=== PATIENT | female | born 1990 | race Caucasian/White ===

== ENCOUNTER 2017-04-12 20:48 | Outpatient (CLI) | payer OTHER ==
[~2017-04-12] VITALS: Ht 165.1 cm; Wt 120.3 kg
[~2017-04-12 20:48] MED LIST: FERR240T9 PO; NITR-58 PO; PREN1TAB79 PO
--- NOTE | 2017-04-12 21:23 | PN ---
Triage Information Date/Time Reason for visit: dysuria Weeks of Gestation 26 weeks /Para Diabetes: none Hypertention: none Objective Heart Rate: 140's Heart Rate Comments Appropriate for GA Contractions: None Disposition: Assessment/Plan Urinalysis D/C home after results are available. WILLY MARTINEZ MD Apr 12, 2017 21:23
[2017-04-12 21:54] VITALS: BP 108/63; PULSE 83; RESP 18
[2017-04-12 23:25] LABS: ADD UMIC YES; UR ASCORBIC ACID 20 mg/dL (NEGATIVE); UR BACTERIA FEW /HPF (NONE SEEN); UR BILIRUBIN (Dip) NEGATIVE (NEGATIVE); UR BLOOD (Dip) NEGATIVE (NEGATIVE); UR CLARITY SLIGHTLY CLOUDY (CLEAR); UR COLOR AMBER (YELLOW); UR GLUCOSE (Dip) NEGATIVE (NEGATIVE); UR KETONES (Dip) NEGATIVE (NEGATIVE); UR LEUKOCYTE ESTERASE (Dip) 1+ Leu/ul (NEGATIVE); UR MUCUS FEW /HPF (NONE SEEN); UR NITRITE (Dip) POSITIVE (NEGATIVE); UR RBC 4 /HPF (0-5); UR SPECIFIC GRAVITY (Dip) 1.027 (1.003-1.030); UR SQUAMOUS EPITHELIAL CELL MODERATE /HPF (FEW); UR TOTAL PROTEIN (Dip) 1+ mg/dl (NEGATIVE); UR UROBILINOGEN (Dip) 2+ mg/dL (NEGATIVE)
--- NOTE | 2017-04-12 23:58 | TRIAGE ---
OB Triage Datetime Report Generated by CPN: 04/12/2017 23:58 Datetime: 04/12/2017 22:01 Labor Evaluation Frequency: 0 Monitor Mode: External Quality: Mild Resting Tone Sultan: Relaxed Heart Rate FHR Baseline Rate: 140 Monitor Mode: External US FHR Baseline Changes: No Baseline Change Variability: Moderate 6-25 bpm Accelerations: 15X15 Category: Category I Datetime: 04/12/2017 21:15 Time of Arrival: 04/12/2017 20:40 EGA: 26.0 Arrived By: Wheelchair Arrived From: Home Chief Complaint: c/s x1 at 26 wks c/o burning and pain w/ urination x 1 day Movement: Present Contractions: Denies/Absent Rupture of Membranes: Denies Vaginal Bleeding: None Vaginal Discharge: Denies Recent Sexual Intercouse: Denies Abdominal Trauma: Not Applicable Patient Complaints: Urinary Frequency; Pain on Urination Time Provider Notified: 04/12/2017 21:12 Provider Notified: Dr Delshad Initial Plan: EFM,UA, PO HYDRATION Datetime: 04/12/2017 21:12 Stage of : OB Triage Datetime: 04/12/2017 21:06 Stage of : OB Triage Maternal Assessment Level of Consciousness: Fully Conscious Headache: Denies Blurred Vision: No Respiratory Effort: Unlabored Nausea/Vomiting: Denies RUQ Epigastric Pain: Denies Facial Edema: None Labor Evaluation Frequency: placed Monitor Mode: External Resting Tone Sultan: Relaxed Heart Rate FHR Baseline Rate: 140 Monitor Mode: External US Pain Assessment Pain Scale: 7 Pain Presence: Intermittent Pain Type: Sharp
== END 2017-04-12 23:55 | disposition home or self-care (01) ==
LOC: OBT 20:48 → L-D 20:50 → OBT 23:55
PROVIDERS: ATTEND Obstetrics & Gynecology
DX: O26.892 Other specified pregnancy related conditions, second trimester (principal); R30.0 Dysuria; Z3A.26 26 weeks gestation of pregnancy
CPT/HCPCS: 81001; 87086; Z7500; G0463

== ENCOUNTER 2017-07-10 16:30 | Inpatient (IN) | END 2017-07-13 16:05 | disposition home or self-care (01) | DRG 766 ==